=== PATIENT | male | born 1945 | race Caucasian/White ===

== ENCOUNTER → 2017-02-05 | Outpatient (CLI) | payer MEDICARE, BC ==
[~2017-02-05] MED LIST: ALBU0.63 NEB; AMLO5TAB4 PO; BUDE90AE PO; CETI10TA24 PO; FLUT1DIS5 IH; LOSA100T6 PO; MONT10TA6 PO; NAPR500T3 PO; OMEP-110 PO
== END | disposition home or self-care (01) ==
LOC: RAD 08:52
PROVIDERS: ATTEND Internal Medicine Cardiovascular Disease
DX: R06.02 Shortness of breath (principal); R06.09 Other forms of dyspnea
CPT/HCPCS: 78582; A9540; A9558

== ENCOUNTER → 2017-02-08 | Outpatient (CLI) | payer MEDICARE, BC ==
[2017-02-05 09:48] LABS: BLOOD UREA NITROGEN 20 mg/dL (7-18)
[2017-02-05 10:30] LABS: HEMATOCRIT 45.9 % (39.2-51.8); HEMOGLOBIN 15.4 g/dL (13.7-18.0); WHITE BLOOD COUNT 7.7 x10^3/uL (3.4-10)
[~2017-02-08] VITALS: Ht 182.9 cm; Wt 93.2 kg
[~2017-02-08] MED LIST changes: +PARO20TA4 PO; +SODIUM CHLORIDE 0.9% 1,000 ML IV SCH
[2017-02-08 09:54] VITALS: BP 151/91
== END | disposition home or self-care (01) ==
LOC: CACL 08:32 → EDSTATUS 09:00
PROVIDERS: ATTEND Internal Medicine Cardiovascular Disease
DX: Z01.811 Encounter for preprocedural respiratory examination (principal); Z01.812 Encounter for preprocedural laboratory examination; R06.02 Shortness of breath; I27.2 Other secondary pulmonary hypertension; I10 Essential (primary) hypertension
CPT/HCPCS: 36415; 71020; 80048; 83880; 85025; 85610; 85730; 93458

== ENCOUNTER 2017-03-05 09:20 | Day surgery (SDC) | payer MEDICARE, BC ==
[~2017-03-05] VITALS: Ht 182.9 cm; Wt 100.0 kg
[~2017-03-05 09:20] MED LIST changes: -SODIUM CHLORIDE 0.9% 1,000 ML IV SCH
[2017-03-05] MEDS ORDERED: SODIUM CHLORIDE 0.9% 1,000 ML IV SCH (09:49)
[2017-03-05 09:52] VITALS: BP 140/80
[2017-03-05] MEDS ORDERED: FENTANYL PF 100 MCG/2ML ONE (10:55)
[2017-03-05] MEDS ORDERED: MIDAZOLAM 1 MG/ML, 5ML ONE (10:55)
[2017-03-05] MEDS ORDERED: NITROGLYCERIN 5 MG/ML, 10ML ONE ×2 (10:56→11:08)
[2017-03-05] MEDS ORDERED: HEPARIN 1,000 UNITS/ML, 10ML ONE (10:56)
[2017-03-05] MEDS ORDERED: LIDOCAINE 2%, 20ML ONE (10:56)
[2017-03-05] MEDS ORDERED: VERAPAMIL 2.5 MG/ML, 2ML ONE (10:56)
[2017-03-05] MEDS ORDERED: BUME1TAB21 PO (13:49)
[2017-03-05] MEDS ORDERED: POTA20TA89 PO (13:50)
[2017-03-05] MEDS ORDERED: APIX5TAB PO (13:51)
[2017-03-05] MEDS ORDERED: SODIUM CHLORIDE 0.9% 500 ML IV SCH (14:00)
== END 2017-03-05 15:31 | disposition home or self-care (01) ==
LOC: CACL 09:20
PROVIDERS: ATTEND Internal Medicine Cardiovascular Disease
DX: I25.10 Atherosclerotic heart disease of native coronary artery without angina pectoris (principal); I27.2 Other secondary pulmonary hypertension; Z87.39 Personal history of other diseases of the musculoskeletal system and connective tissue
CPT/HCPCS: 93005; 93460; 99156; 99157; C1769; C1894; J1644; J2250; J3010; J3490; J7040; Q9967

== ENCOUNTER → 2017-08-20 | Outpatient (CLI) | payer MEDICARE, BC ==
[~2017-08-20] MED LIST changes: +APIX5TAB PO; +BUME1TAB21 PO; -NAPR500T3 PO; +NAPR500T4 PO; +POTA20TA89 PO
== END | disposition home or self-care (01) ==
LOC: EDSTATUS 16:00 → CFH 16:06
PROVIDERS: ATTEND Internal Medicine Cardiovascular Disease
DX: R06.02 Shortness of breath (principal); I10 Essential (primary) hypertension; I27.20 Pulmonary hypertension, unspecified
CPT/HCPCS: 93306